=== PATIENT | female | born 1990 | race Hispanic/Latino ===

== ENCOUNTER 2023-02-19 16:23 | Outpatient (RCR) | payer OTHER, SELFPAY | END 2023-03-05 10:09 | disposition home or self-care (01) | LOC: ROT 16:23 | PROVIDERS: ATTENDING PHYSICIAN Nurse Practitioner Family | DX: M62.81 Muscle weakness (generalized) (principal); Z73.6 Limitation of activities due to disability; R29.898 Other symptoms and signs involving the musculoskeletal system; R25.1 Tremor, unspecified; R29.6 Repeated falls; Z86.73 Personal history of transient ischemic attack (TIA), and cerebral infarction without residual deficits | CPT/HCPCS: 97110; 97112 ==

== ENCOUNTER 2023-05-16 13:33 | Emergency (ER) | payer OTHER, SELFPAY ==
[2023-05-16 13:37] VITALS: BP 128/85
[2023-05-16 13:57] LABS: % Basophils 0.4 % (0-2); % Eosinophils 1.3 % (0-6); % Immature Granulocytes 0.6 % (0-0.5); % Lymphocytes 21.7 % (20.5-51.1); % Monocytes 6.8 % (1.7-9.3); % Neutrophils 69.2 % (42.2-75.2); Absolute Basophils 0.1 10^3/uL (0-0.2); Absolute Eosinophils 0.2 10^3/uL (0-0.7); Absolute Immature Granulocytes 0.1 10^3/uL (0-0.05); Absolute Lymphocytes 3.5 10^3/uL (1.2-3.4); Absolute Monocytes 1.1 10^3/uL (0.1-0.6); Hematocrit 36.9 % (37.0-47.0); Hemoglobin 11.6 g/dL (12.0-16.0); Mean Corp Hgb Conc. 31.4 g/dL (33.0-37.0); Mean Corpuscular Hgb 25.1 pg (27.0-31.0); Mean Corpuscular Volume 79.9 fL (81.0-99.0); Mean Platelet Volume 10.4 fL (7.4-10.4); Nucleated Red Blood Cells % 0 %; Platelet Count 373 10^3/uL (130-400); Red Blood Cell Count 4.62 10^6/uL (4.20-5.40); Red Cell Dist. Width 16.1 % (11.5-14.5)
[2023-05-16 14:16] LABS: HCG, Serum Qualitative Screen Negative
[2023-05-16 14:34] LABS: ALT (SGPT) 20 U/L (0-35); AST (SGOT) 27 U/L (14-36); Albumin 4.2 g/dl (3.5-5.0); Alkaline Phosphatase 134 U/L (38-126); Blood Urea Nitrogen 10 mg/dl (7-17); Calcium 8.9 mg/dl (8.4-10.2); Carbon Dioxide 24 mmol/L (22-30); Chloride 104 mmol/L (98-107); Glucose 78 mg/dl (70-99); Sodium 136 mmol/L (135-145); Total Bilirubin 0.4 mg/dl (0.2-1.3); Total Protein 7.8 g/dl (6.3-8.2); eGFR > 60.00
--- NOTE | 2023-05-16 15:32 | ED.GENMED ---
History of Present Illness
General
Chief Complaint: Dizziness
Source: patient and family
Time Seen by Provider: 05/16/23 15:08
Travel History
Have you had any contact with someone who has COVID-19?: No
Do you have any symptoms of coronavirus? Fever > 100 degrees, chills, cough, shortness of breath, sore throat, loss of taste or smell, muscle aches, or headache?: No
History of Present Illness
History of Present Illness:
33-year-old female with past medical history of TIA presenting to the emergency department for evaluation of dizziness that she states has been waxing and waning over the last 4 to 5 days, today symptoms seem to be more constant prompting her to
come to the ER for further evaluation. She describes a sensation as if everything is spinning and noting that it will happen every few minutes and then resolves without any intervention. There are no exacerbating or alleviating factors, patient
states she does have a mild headache associated with this but no visual disturbances, focal weakness or numbness (has chronic left upper extremity fatigue/weakness from previous CVA), chest pain, shortness of breath, fevers or recent illnesses,
otalgia or other URI-like symptoms. Patient did not take anything for symptoms prior to arrival. She notes that her CVA presentations in the past included left upper and lower extremity weakness as well as speech difficulties but never dizziness.
Patient notes that she has had extensive outpatient workup as to why she may have had a CVA at such a young age but she states that neither neurology, cardiology or hematology was able to find a reason.
Past History
Past History
ED Past Medical History: Asthma and CVA
ED Past Surgical History: Other
Social History
Tobacco: Non-smoker
Alcohol: Occasional
Drug: None
Personal: Single
Living: with family
Employment: Employed
Review of Systems
Review of Systems
All Other Systems: ROS reviewed and negative except as documented in HPI and ROS
Phy Exam
Physical Exam
Physical Exam:
GENERAL: Alert , in no apparent distress
EYE: pupils equal and reactive, EOMI, no nystagmus
NECK: Supple
ENT: o/p clr, mmm.
CARDIAC: Regular rate and rhythm, no murmur,
LUNGS: Clear breath sounds bilaterally, no acute respiratory distress, no wheezes/rales/rhonchi
ABDOMEN: Soft, without focal tenderness, no r/g, no cvat
NEUROLOGICAL: Alert and oriented, ambulates with a steady gait and without ataxia, no dysmetria, dysarthria or aphasia. 4+ house father strength as well as biceps and triceps to the left upper extremity which patient reports is chronic and unchanged. 5+
strength to the right upper extremity. Lower extremities have intact and equal sensation and strength throughout.
SKIN: Warm and dry, skin intact.
MUSCULOSKELETAL: No edema, well perfused.
PSYCH: Normal and appropriate interaction.
Scores
Heart Failure Risk
Heart Failure Risk Score: Not Applicable
Heart Score for Chest Pain Patients
STEMI patient?: Not applicable
Withdrawal Assessment of Alcohol
Withdrawal Assessment Completed?: Not applicable
Course
Orders/Labs/Results
Orders:
Orders
05/16/23 13:41
Electrocardiogram (*1) Urgent
Reason for Study: Vertigo / Dizzy
Head wo Contrast CT [CT Head W/o Iv Contrast] Urgent
Comment:
Reason For Exam: dizziness
EKG- Treatment ONCE
Test Result ONCE
05/16/23 13:47
Complete Blood Count/With Diff Urgent
Comprehensive Metabolic Panel Urgent
HCG, Serum Qualitative Screen Urgent
05/16/23 15:29
Meclizine [Antivert] 25 mg PO NOW STA
Abnormal Lab Results
05/16/23
13:47
WBC 16.0 H 10^3/uL
(4.8-10.8)
Hgb 11.6 L g/dL
(12.0-16.0)
Hct 36.9 L %
(37.0-47.0)
MCV 79.9 L fL
(81.0-99.0)
MCH 25.1 L pg
(27.0-31.0)
MCHC 31.4 L g/dL
(33.0-37.0)
RDW 16.1 H %
(11.5-14.5)
Abs Immat Gran (auto) 0.1 H 10^3/uL
(0-0.05)
Absolute Neuts (auto) 11.0 H 10^3/uL
(1.4-6.5)
Absolute Lymphs (auto) 3.5 H 10^3/uL
(1.2-3.4)
Absolute Monos (auto) 1.1 H 10^3/uL
(0.1-0.6)
Immature Gran % 0.6 H %
(0-0.5)
Alkaline Phosphatase 134 H U/L
(38-126)
05/16/23 13:47
05/16/23 13:47
Vital Signs
Initial and Last Documented VS:
Initial Vital Signs
Temp Pulse Resp BP Pulse Ox
97.6 F 100 18 128/85 98
05/16/23 13:37 05/16/23 13:37 05/16/23 13:37 05/16/23 13:37 05/16/23 13:37
Last Documented Vital Signs
Temp Pulse Resp BP Pulse Ox
97.6 F 100 18 128/85 98
05/16/23 13:37 05/16/23 13:37 05/16/23 13:37 05/16/23 13:37 05/16/23 13:37
Crtts consulted with Physician
Crtts consulted with physician?: Yes
Name of Physician Consulted: Noh
MDM/Problems Addressed
Differential Diagnosis Includes:
BPPV, labyrinthitis, electrolyte disturbance, , CVA considered given patient's past medical history however given the waxing and waning nature of the symptoms this seems much less likely
MDM/Problems Addressed:
33-year-old female presenting to the emergency department for evaluation of vertiginous-like symptoms that been ongoing for the last for 5 days, today symptoms were little bit worse in terms of frequency. Presently still notes some mild dizziness
however unable to elicit this during exam. Patient has no neurologic deficits outside of her already known chronic physical exam findings. There was no ataxia. Patient is already on daily aspirin. Lab work initiated in triage which shows a
leukocytosis of unspecified significance as patient has had an elevated white blood cell count in the past and when reviewing her previous labs done as an outpatient this appears to be chronically. Patient also had an MRI done in January 2023
which did not show any intracranial pathologies (this was reviewed on her MyChart through [facility]) and did not show any evidence of stroke. Will treat with Antivert and reassess following.
Chronic conditions affecting care: Neurological disorder
*Radiology
Radiology exam reviewed: radiology read reviewed
*Pulse Oximetry
Patient hypoxic: no
*EKG
Interpreted by ED Provider?: Yes
Comparison EKG: no changes
Heart Rate: 100
Rate: tachycardiac
Rhythm: sinus
[place]: normal axis
Ischemia: no ischemia
*Critical Care Note
Total Time (30-74mins, 75-104mins- exclusive of procedures): Not Applicable
Data Reviewed
Review of Other/Old Records Reveals: Labs and Radiology Studies
Source: patient, records and family
Patient Management
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
Escalation/DeEscalation of care consider admission/obs:
4:30 PM: On reevaluation patient notes she still is experiencing intermittent dizziness despite the Antivert. She has noted to be on her phone and in no acute distress. Given her history I contacted our neurology team to discuss the case and her
physical exam today. Ultimately we decided to forego any further imaging and patient is stable to be discharged home to follow-up with her neurology team. Prescription for Antivert given. Advise she can also follow-up with her primary care
provider. Return precautions discussed. Patient feels comfortable with this plan.
ED Attending Note
-
Portions of this chart may have been created with voice recognition software.� Occasional wrong word or��sound alike� substitutions may have occurred due to the inherent limitations of voice recognition software.
Discharge Plan
Departure
Patient Disposition: Home (Routine Discharge)
Date of Disposition: 05/16/23
Time of Disposition: 16:34
Patient with high blood pressure during this ER visit?: No
Discharge Problem:
Vertigo
Instructions: Vertigo (a Type of Dizziness) (DC)
Prescriptions:
New
meclizine [Antivert] 50 mg tablet
50 mg PO BID PRN (Reason: dizziness) Qty: 10 0RF
Referrals:
Isaac Reardon CRNP [Family Provider] -
Interventions
Interventions:
*Risk Screen - Suicide Last Done: 05/16/23 13:40
*General Assessment Last Done: 05/16/23 13:40
*Neglect/Abuse Screening Last Done: 05/16/23 13:40
ED- Fall Risk Assessment Last Done: 05/16/23 16:40
*ED COVID-19 Vaccine History Last Done: 05/16/23 16:40
*Nursing Disposition Last Done: 05/16/23 16:40
ED- Neurological Assessment Last Done: 05/16/23 16:34
Discharge Date and Time
Print Language: HEBREW
[2023-05-16] MEDS: ANTIVERT 25 MG PO (15:33)
== END 2023-05-16 16:41 | disposition home or self-care (01) ==
LOC: EMR 13:33
PROVIDERS: EMERGENCY PHYSICIAN Emergency Medicine; FAMILY PHYSICIAN Nurse Practitioner Family
DX: R42 Dizziness and giddiness (principal); Z86.73 Personal history of transient ischemic attack (TIA), and cerebral infarction without residual deficits
CPT/HCPCS: 99285; 70450; 80053; 84703; 85025; 93005

== ENCOUNTER 2023-08-14 15:02 | Emergency (ER) | payer OTHER, SELFPAY ==
[2023-08-14 15:10] VITALS: BP 129/89
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
[2023-08-14] MEDS: TYLENOL 650 MG PO (16:28)
[2023-08-14] MEDS: ZOFRAN ODT (ORALLY DISINTEGRATING) 4 MG PO (16:28)
== END 2023-08-14 17:06 | disposition home or self-care (01) ==
LOC: EMR 15:02
PROVIDERS: EMERGENCY PHYSICIAN Emergency Medicine; FAMILY PHYSICIAN Nurse Practitioner Family
DX: S09.90XA Unspecified injury of head, initial encounter (principal); Y09 Assault by unspecified means; J45.909 Unspecified asthma, uncomplicated; Z79.82 Long term (current) use of aspirin; Z86.73 Personal history of transient ischemic attack (TIA), and cerebral infarction without residual deficits
CPT/HCPCS: 99282

== ENCOUNTER → 2024-02-06 07:54 | Outpatient (REF) | payer OTHER, SELFPAY | LOC: RAD 07:54 | PROVIDERS: ATTENDING PHYSICIAN Internal Medicine Rheumatology; FAMILY PHYSICIAN Internal Medicine Geriatric Medicine | DX: E07.9 Disorder of thyroid, unspecified (principal); E53.8 Deficiency of other specified B group vitamins; M25.50 Pain in unspecified joint; M79.10 Myalgia, unspecified site | CPT/HCPCS: 72040; 72110; 73120 ==

== ENCOUNTER → 2024-03-02 09:13 | Outpatient (REF) | payer OTHER, SELFPAY | LOC: CLAB 09:13 | PROVIDERS: ATTENDING PHYSICIAN Otolaryngology | DX: J35.3 Hypertrophy of tonsils with hypertrophy of adenoids (principal) | CPT/HCPCS: 88304 ==

== ENCOUNTER → 2024-04-06 15:58 | Outpatient (REF) | payer OTHER, SELFPAY | LOC: RAD 15:58 | PROVIDERS: ATTENDING PHYSICIAN Nurse Practitioner Adult Health | DX: N92.1 Excessive and frequent menstruation with irregular cycle (principal); E61.1 Iron deficiency | CPT/HCPCS: 76830; 76856 ==